=== PATIENT | female | born 1980 | race Caucasian/White ===

== ENCOUNTER → 2017-04-22 | Outpatient (CLI) | payer OTHER ==
[~2017-04-22] MED LIST: LORA10TA7 PO; ONDA4TAB12 PO
[2017-04-22 08:59] LABS: % IRON SATURATION 47 % (11-46); IRON 113 UG/DL (49-151); TOTAL IRON BINDING CAPACITY 239 UG/DL (259-388)
[2017-04-22 09:33] LABS: FERRITIN 74 NG/ML (8-252)
[2017-04-23 09:46] LABS: TRANSFERRIN 201 mg/dL (200-370)
== END ==
LOC: LAB 08:05
PROVIDERS: ATTEND Family Medicine
DX: E83.19 Other disorders of iron metabolism (principal)
CPT/HCPCS: 36415; 82728; 83540; 83550; 83891; 83892; 83894; 83898; 83912; 84466

== ENCOUNTER 2017-07-04 13:37 | Day surgery (SDC) | payer OTHER ==
[~2017-07-04] VITALS: Ht 162.6 cm; Wt 70.5 kg
[2017-07-04 13:45] VITALS: BP 140/87
[2017-07-04] MEDS ORDERED: NO HOME MEDS (13:49)
[2017-07-04] MEDS ORDERED: MIDAZolam 5mg/ml 2ml vial ONE (14:06)
[2017-07-04] MEDS ORDERED: LIDOcaine Viscous 15ml cup ONE (14:06)
[2017-07-04] MEDS ORDERED: fentaNYL/PF 50MCG/1 ML 2ML syringe ONE (14:06)
[2017-07-04 14:54] VITALS: BP 110/55
[2017-07-04 15:03] VITALS: BP 105/68
[2017-07-04 15:13] VITALS: BP 106/73
[2017-07-04 15:23] VITALS: BP 122/51
== END 2017-07-04 15:28 | disposition home or self-care (01) ==
LOC: GI LAB 13:37
PROVIDERS: ATTEND Internal Medicine Gastroenterology
DX: K62.1 Rectal polyp (principal); K64.8 Other hemorrhoids; K31.89 Other diseases of stomach and duodenum; K29.50 Unspecified chronic gastritis without bleeding; G43.909 Migraine, unspecified, not intractable, without status migrainosus; F17.210 Nicotine dependence, cigarettes, uncomplicated; K21.9 Gastro-esophageal reflux disease without esophagitis; Z72.89 Other problems related to lifestyle; Z87.11 Personal history of peptic ulcer disease; Z88.6 Allergy status to analgesic agent; Z88.8 Allergy status to other drugs, medicaments and biological substances; Z90.710 Acquired absence of both cervix and uterus; Z98.890 Other specified postprocedural states
CPT/HCPCS: 43239; 45380; 99152; 99153; J2250; J3010; J7030; A4620; G0500

== ENCOUNTER 2018-02-06 08:12 | Emergency (ER) | payer OTHER ==
[~2018-02-06] VITALS: Ht 162.6 cm; Wt 75.9 kg
[~2018-02-06 08:12] MED LIST changes: -LORA10TA7 PO; +NO HOME MEDS; -ONDA4TAB12 PO
[2018-02-06 08:14] VITALS: BP 133/90
[2018-02-06] MEDS ORDERED: ipratropium/albuterol 3ml nebule NEB ONE (08:25)
[2018-02-06] MEDS ORDERED: ALBU6.7H INH (08:51)
[2018-02-06] MEDS ORDERED: AMOX-419 PO (08:51)
== END 2018-02-06 09:03 | disposition home or self-care (01) ==
LOC: ER 08:13
DX: J20.9 Acute bronchitis, unspecified (principal); G43.909 Migraine, unspecified, not intractable, without status migrainosus; K21.9 Gastro-esophageal reflux disease without esophagitis; Z71.6 Tobacco abuse counseling; Z88.8 Allergy status to other drugs, medicaments and biological substances; Z88.6 Allergy status to analgesic agent
CPT/HCPCS: 71046; 94640; 94760; 99284

== ENCOUNTER → 2018-03-24 | Outpatient (CLI) | payer OTHER ==
[~2018-03-24] MED LIST changes: +ALBU6.7H INH
== END | disposition home or self-care (01) ==
LOC: RAD 08:36
PROVIDERS: ATTEND Family Medicine
DX: M48.02 Spinal stenosis, cervical region (principal); Z87.891 Personal history of nicotine dependence
CPT/HCPCS: 72141

== ENCOUNTER 2018-05-23 13:07 | Emergency (ER) | payer OTHER ==
[~2018-05-23] VITALS: Ht 160 cm; Wt 140.0 kg
[2018-05-23 13:11] VITALS: BP 158/113
[2018-05-23] MEDS ORDERED: PRED20TA PO (13:18)
[2018-05-23] MEDS ORDERED: predniSONE 20 mg tablet PO ONE (13:20)
== END 2018-05-23 13:33 | disposition home or self-care (01) ==
LOC: ER 13:07 → EEVIPCON 13:07 → ER 13:33
DX: R21 Rash and other nonspecific skin eruption (principal); T49.0X5A Adverse effect of local antifungal, anti-infective and anti-inflammatory drugs, initial encounter; L53.8 Other specified erythematous conditions; G43.909 Migraine, unspecified, not intractable, without status migrainosus; K21.9 Gastro-esophageal reflux disease without esophagitis; Z87.11 Personal history of peptic ulcer disease; Z88.6 Allergy status to analgesic agent; Z88.8 Allergy status to other drugs, medicaments and biological substances; Z79.899 Other long term (current) drug therapy; Y92.89 Other specified places as the place of occurrence of the external cause
CPT/HCPCS: 99283; J7512

== ENCOUNTER 2018-09-14 18:36 | Emergency (ER) | payer OTHER ==
[~2018-09-14] VITALS: Ht 160 cm; Wt 75.5 kg
--- NOTE | 2018-09-14 20:03 | NUR ---
awaiting er provider
[2018-09-14] MEDS ORDERED: ketorolac trometh. 30mg/ml inj. IM ONE (20:35)
[2018-09-14] MEDS ORDERED: DIAZ5TAB PO (20:43)
[2018-09-14] MEDS ORDERED: METH4TAB81 PO (20:43)
[2018-09-14 21:14] VITALS: BP 149/87
== END 2018-09-14 21:15 | disposition home or self-care (01) ==
LOC: ER 18:40
DX: S16.1XXA Strain of muscle, fascia and tendon at neck level, initial encounter (principal); M54.5 Low back pain; G89.29 Other chronic pain; G43.909 Migraine, unspecified, not intractable, without status migrainosus; K21.9 Gastro-esophageal reflux disease without esophagitis; Z98.890 Other specified postprocedural states; Z88.8 Allergy status to other drugs, medicaments and biological substances; Z79.899 Other long term (current) drug therapy; V89.2XXA Person injured in unspecified motor-vehicle accident, traffic, initial encounter; Y93.89 Activity, other specified; Y92.89 Other specified places as the place of occurrence of the external cause; Y99.8 Other external cause status
CPT/HCPCS: 96372; 99283; J1885

== ENCOUNTER 2019-01-05 09:53 | Outpatient (CLI) | payer OTHER ==
[~2019-01-05 09:53] MED LIST changes: -ALBU6.7H INH; +ALBU6.7H9 INH; +DIAZ5TAB PO; +METH4TAB81 PO
[2019-01-05 10:40] LABS: BASOPHILS % (AUTO) 0.4 % (0-1); EOSINOPHILS # (AUTO) 0.1 X10'3 (0-0.9); EOSINOPHILS % (AUTO) 1.3 % (0-6); HEMATOCRIT 42.4 % (35.0-45.0); HEMOGLOBIN 14.2 g/dl (12.0-16.0); LYMPHOCYTES # (AUTO) 1.5 X10'3 (1.1-4.8); LYMPHOCYTES % (AUTO) 21.5 % (21-51); MEAN CORPUSCULAR HEMOGLOBIN 32.2 PG (27.0-31.0); MEAN CORPUSCULAR HGB CONC 33.5 g/dL (33.0-36.5); MEAN CORPUSCULAR VOLUME 96.2 FL (78-98); MEAN PLATELET VOLUME 7.9 FL (7.4-10.4); MONOCYTES # (AUTO) 0.5 X10'3 (0-0.9); MONOCYTES % (AUTO) 7.9 % (2-12); NEUTROPHILS # (AUTO) 4.7 X10'3 (1.8-7.7); NEUTROPHILS % (AUTO) 68.9 % (42-75); PLATELET COUNT 277 X10'3 (140-440); RED BLOOD COUNT 4.41 X10'6 (4.20-5.60); RED CELL DISTRIBUTION WIDTH 13.1 % (11.5-14.5); WHITE BLOOD COUNT 6.9 X10'3 (4.5-11.0)
[2019-01-05 11:06] LABS: ALANINE AMINOTRANSFERASE 18 U/L (12-78); ALBUMIN 3.6 G/DL (3.4-5.0); ALBUMIN/GLOBULIN RATIO 1.1 (1.1-1.5); ALKALINE PHOSPHATASE 36 IU/L (46-116); ANION GAP 8 (8-16); ASPARTATE AMINO TRANSFERASE 8 U/L (10-37); BILIRUBIN,TOTAL 0.4 MG/DL (0.1-1.0); BLOOD UREA NITROGEN 11 MG/DL (7-18); BUN/CREATININE RATIO 18.3 (6.6-38.0); C-REACTIVE PROTEIN 0.13 MG/DL (0.0-0.5); CALCIUM 8.5 MG/DL (8.5-10.1); CHLORIDE 106 MMOL/L (99-107); CHOL/HDL RATIO 4.2 (0.00-4.99); CHOLESTEROL 174 MG/DL (0-200); GLUCOSE 87 MG/DL (70-104); HDL CHOLESTEROL 41 MG/DL (35-60); LDL CHOLESTEROL 116 MG/DL (50-100); POTASSIUM 4.3 MMOL/L (3.5-5.1); SODIUM 140 MMOL/L (135-145); TOTAL CARBON DIOXIDE 25.9 MMOL/L (24-32); TOTAL PROTEIN 6.9 G/DL (6.4-8.2); TRIGLYCERIDES 94 MG/DL (20-135); eGFR > 90 ML/MIN
== END 2019-01-05 23:59 | disposition home or self-care (01) ==
LOC: LAB 09:53
PROVIDERS: ATTEND Family Medicine
DX: M54.2 Cervicalgia (principal); R09.89 Other specified symptoms and signs involving the circulatory and respiratory systems; R35.0 Frequency of micturition; E78.00 Pure hypercholesterolemia, unspecified
CPT/HCPCS: 36415; 80053; 80061; 84439; 84443; 85025; 85651; 86140